=== PATIENT | female | born 1940 | race Caucasian/White ===

== ENCOUNTER → 2016-07-28 | Outpatient (CLI) | payer OTHER ==
[2015-12-28 22:05] VITALS: BP 145/80
[~2016-07-28] MED LIST: ALBU8.5H8 IH; ALPR0.5T6 PO; ESTR0.5T PO; FLUT1DIS3 IH; HCTZ; HYDR25TA9 PO; IBUP400T18 PO; ISOS30TA PO; LEVO88TA2 PO; LOVA40TA2 PO; METO25TA2 PO; MULT-658 PO; OMEG500C3 PO; ONDA4TAB10 SL; OSEL75CA PO; [UNRECOGNIZED DRUG - OTHER]; [UNRECOGNIZED DRUG - OTHER]; advair; centrum; fish oil; ibuprofen; lovastatin; proair
--- NOTE | 2016-07-28 12:44 | RAD ---
Chest, 2 views, 07/28/2016: History: Coronary artery disease Comparison is made to a study from 12/14/2015. A left-sided transvenous pacemaker remains in place with 2 leads extending in the right heart. The heart size and pulmonary vascularity are normal. There is mild tortuosity and calcific plaquing of the thoracic aorta. There is minimal basilar scarring posteriorly. No acute infiltrate is seen. No significant volume of pleural fluid is evident. Mild spurring is present in the spine. IMPRESSION: No acute cardiopulmonary abnormality is detected.
[2016-07-28 13:02] LABS: BASO % 1 % (0-3); EOS # 1.2 x10^3/uL (0.0-0.7); EOS % 15 % (0-3); HEMATOCRIT 41.8 % (36.0-47.0); LYMPH # 2.2 x10^3/uL (1.0-4.8); LYMPH % 29 % (24-48); MEAN CORPUSCULAR HEMOGLOBIN 28 pg (25-35); MEAN CORPUSCULAR HGB CONC 34 g/dL (31-37); MEAN CORPUSCULAR VOLUME 85 fL (79-100); MONO # 1.1 x10^3/uL (0.0-1.1); MONO % 14 % (0-9); NEUT # 3.3 x10^3uL (1.8-7.7); NEUT % 42 % (31-73); PLATELET COUNT 313 x10^3/uL (140-400); RED BLOOD COUNT 4.95 x10^6/uL (3.50-5.40); RED CELL DISTRIBUTION WIDTH 14.2 % (11.5-14.5); WHITE BLOOD COUNT 7.8 x10^3/uL (4.0-11.0)
[2016-07-28 13:15] LABS: ALBUMIN 3.8 g/dL (3.4-5.0); CALCIUM 9.3 mg/dL (8.5-10.1); CREATININE 0.9 mg/dL (0.6-1.0); GFR 61.2; POTASSIUM 3.4 mmol/L (3.5-5.1); TOTAL BILIRUBIN 0.9 mg/dL (0.2-1.0); TOTAL PROTEIN 7.8 g/dL (6.4-8.2)
[2016-07-29 12:11] LABS: THYROID STIM HORMONE (TSH) 4.977 uIU/mL (0.358-3.740)
== END | disposition home or self-care (01) ==
LOC: LAB 11:59
PROVIDERS: ATTEND Internal Medicine Cardiovascular Disease
DX: I25.110 Atherosclerotic heart disease of native coronary artery with unstable angina pectoris (principal); E78.00 Pure hypercholesterolemia, unspecified; Z95.0 Presence of cardiac pacemaker
CPT/HCPCS: 36415; 71020; 80053; 80061; 84443; 85027

== ENCOUNTER → 2016-08-26 | Outpatient (CLI) | payer OTHER ==
[2015-12-28 22:05] VITALS: BP 145/80
--- NOTE | 2016-08-26 13:00 | RAD ---
Left wrist, 4 views, 08/26/2016: History: Pain and swelling No fracture or dislocation is identified. There is a small well-defined lucency in the distal aspect of the navicular bone compatible with a degenerative type cyst. There is minimal spurring at the first CMC joint. IMPRESSION: 1. Mild degenerative change. 2. No acute bony abnormality is detected. Left forearm, 08/26/2016: History: Arm pain and swelling No fracture or destructive bony lesion is seen. Mild subcutaneous edema is noted. IMPRESSION: No acute bony abnormality is detected.
== END | disposition home or self-care (01) ==
LOC: DXRADRC 12:21
PROVIDERS: ATTEND Nurse Practitioner Family
DX: M19.042 Primary osteoarthritis, left hand (principal); M79.89 Other specified soft tissue disorders
CPT/HCPCS: 73090; 73110

== ENCOUNTER 2016-08-27 12:10 | Emergency (ER) | payer MEDICARE, OTHER ==
[~2016-08-27] VITALS: Ht 154.9 cm; Wt 78.0 kg
[2016-08-27 12:10] VITALS: BP 158/87
--- NOTE | 2016-08-27 12:14 | ED.ADGEN ---
Past History Past Medical History: A-Fib, Asthma, CAD, Cancer, COPD, High Cholesterol, Hypertension, Hypothyroid, SC, Other Past Surgical History: Cholecystectomy, Hysterectomy, Other Smoking: Less than 1pk/day, Quit Less Than 1 Year Alcohol Use: Rarely Drug Use: None Adult General Chief Complaint Chief Complaint Left arm pain [facility] Patient is a 76 year old she and female who presents with arm pain. She states it hurts about the last 5 days. She was seen by her primary care physician and had x-rays of her hand and forearm completed and was told there is no fracture. She presents today with swelling of her arm stating that the primary care doctor was concerned there might be a blood clot in her arm and wants ultrasound. She states she's not been using anything for pain, she denies fevers chills and shortness of breath. She states it does not hurt in her wrist but it does hurt over her thumb and it hurts when she tries to brass pickler heavy objects. She also complains of a rash that she's seeing the on air talent about this states that she doesn't trust the on air talent and she was given a cream that felt like fire when she applied. She shows me the cream and it is triamcinolone cream. She also has a topical steroid that she is using. States the rash is itchy and she scratches it from time to time. Review of Systems Review of Systems Constitutional: Denies fever or chills [] Eyes: Denies change in visual acuity, redness, or eye pain [] HENT: Denies nasal congestion or sore throat [] Respiratory: Denies cough or shortness of breath [] Cardiovascular: No additional information not addressed in HPI [] GI: Denies abdominal pain, nausea, vomiting, bloody stools or diarrhea [] : Denies dysuria or hematuria [] Musculoskeletal: Denies back pain or joint pain [] Integument: Denies rash or skin lesions [] Neurologic: Denies headache, focal weakness or sensory changes [] Endocrine: Denies polyuria or polydipsia [] Allergies Allergies Allergies Coded Allergies Type Severity Reaction Last Updated Verified codeine Allergy Intermediate Nausea 10/18/13 Yes hydrocodone Allergy Intermediate 10/18/13 Yes Physical Exam Physical Exam Constitutional: Well developed, well nourished, no acute distress, non-toxic appearance. [] HENT: Normocephalic, atraumatic, bilateral external ears normal, oropharynx moist, no oral exudates, nose normal. [] Eyes: PERRLA, EOMI, conjunctiva normal, no discharge. [] Neck: Normal range of motion, no tenderness, supple, no stridor. [] Cardiovascular:Heart rate regular rhythm, no murmur [] Lungs & Thorax: Bilateral breath sounds clear to auscultation [] Abdomen: Bowel sounds normal, soft, no tenderness, no masses, no pulsatile masses. [] Skin: Warm, dry, no erythema, sandpaper type rash on the right thigh in addition to right upper chest, no erythema. Back: No tenderness, no CVA tenderness. [] Extremities: Swelling over the dorsum of the distal forearm of the left side, sensation and motor intact to radial median and ulnar distributions, no cyanosis , no clubbing, ROM intact, radial pulse 2+ Neurologic: Alert and oriented X 3, normal motor function, normal sensory function, no focal deficits noted. [] Psychologic: Affect normal, judgement normal, mood normal. [] Current Patient Data Vital Signs Vital Signs Date Time Temp Pulse Resp B/P (MAP) Pulse Ox O2 Delivery O2 Flow Rate FiO2 08/27/16 12:10 98.5 82 22 98 Room Air EKG EKG [] Radiology/Procedures Radiology/Procedures I reviewed the x-rays from 08/26/2016; 4 views of the left wrist and 2 views of the left forearm do not appreciate any fractures, foreign bodies, or malalignments, as interpreted by me. [place] [id number] IMAGING REPORT Signed PATIENT: SHAYY NOBLE ACCOUNT: [id number] : 1940 LOCATION: ER AGE: 76 SEX: F EXAM STATUS: REG ER ORD. PHYSICIAN: REECE CORONADO MD REASON: pain PROCEDURE: VENOUS UPPER EXTREMITY LEFT Left upper extremity venous Doppler. History: Pain left wrist with swelling Ultrasound was used to evaluate the veins of the left upper extremity. The patient was uncooperative, the study is limited. The jugular vein is compressible and has flow with color imaging. There is flow with color imaging in the subclavian vein. Axillary vein is compressible. Patient would not allow augmentation views to be obtained. Technologist stated there was compression of the brachial vein which is not optimally seen on the images. Impression: 1. Left upper extremity venous Doppler was a very limited study. 2. No obvious deep venous thrombosis. DICTATED AND SIGNED BY: HECTOR MARTIN MD DATE: 08/27/16 [id number] CC: REECE CORONADO MD; ALYSSA GALEANO ~ Course & Med Decision Making Course & Med Decision Making Pertinent Labs and Imaging studies reviewed. (See chart for details) X-rays performed yesterday in addition to ultrasound today is negative. She has good cap refill and pulses. This could be arthritis or other inflammatory process. We'll discharge with a wrist splint and [place]. She is instructed not to drive or drink alcohol while taking [place] as it can impair judgment and make you sleepy. Return precautions given. She is to follow-up with her primary care physician on Monday, return ER if her pains not improved, worse she develops fevers or other concerns. Final Impression Final Impression Left arm pain Problems: Dragon Disclaimer Dragon Disclaimer This electronic medical record was generated, in whole or in part, using a voice recognition dictation system. REECE CORONADO MD Aug 27, 2016 12:14
--- NOTE | 2016-08-27 13:49 | RAD ---
Left upper extremity venous Doppler. History: Pain left wrist with swelling Ultrasound was used to evaluate the veins of the left upper extremity. The patient was uncooperative, the study is limited. The jugular vein is compressible and has flow with color imaging. There is flow with color imaging in the subclavian vein. Axillary vein is compressible. Patient would not allow augmentation views to be obtained. Technologist stated there was compression of the brachial vein which is not optimally seen on the images. Impression: 1. Left upper extremity venous Doppler was a very limited study. 2. No obvious deep venous thrombosis.
== END 2016-08-27 14:26 | disposition home or self-care (01) ==
LOC: ER 12:10
DX: M79.602 Pain in left arm (principal); R21 Rash and other nonspecific skin eruption; I48.91 Unspecified atrial fibrillation; I25.10 Atherosclerotic heart disease of native coronary artery without angina pectoris; J44.9 Chronic obstructive pulmonary disease, unspecified; E78.00 Pure hypercholesterolemia, unspecified; E03.9 Hypothyroidism, unspecified; I10 Essential (primary) hypertension; Z87.891 Personal history of nicotine dependence; Z88.5 Allergy status to narcotic agent
CPT/HCPCS: 29125; 93971; 99284-25

== ENCOUNTER → 2016-09-27 | Outpatient (CLI) | payer MEDICARE, OTHER ==
[2016-09-27 12:10] LABS: CALCIUM 9.3 mg/dL (8.5-10.1); CREATININE 0.8 mg/dL (0.6-1.0); GFR 69.9; POTASSIUM 3.9 mmol/L (3.5-5.1)
== END | disposition home or self-care (01) ==
LOC: LAB 11:30
PROVIDERS: ATTEND Internal Medicine Cardiovascular Disease
DX: E87.6 Hypokalemia (principal)
CPT/HCPCS: 36415; 80048

== ENCOUNTER → 2016-11-09 | Outpatient (CLI) | payer OTHER ==
--- NOTE | 2016-11-09 16:53 | RAD ---
EXAM: Right lower extremity Doppler sonogram. HISTORY: Swelling. TECHNIQUE: Grayscale and color Doppler sonographic imaging of the lower extremity veins with spectral waveform analysis was performed. COMPARISON: None. FINDINGS: There is normal color flow, normal compressibility and there are normal spectral waveforms within the lower extremity veins. There are prominent lymph nodes within the right inguinal region. The largest of these measures 3.0 cm maximum dimension and maintains a benign fatty hilum. IMPRESSION: 1. No Doppler evidence of lower extremity venous thrombosis. 2. Prominent right inguinal lymph nodes, likely physiologic or reactive.
== END | disposition home or self-care (01) ==
LOC: US 15:01
PROVIDERS: ATTEND Physician Assistant Medical
DX: M79.604 Pain in right leg (principal); M79.89 Other specified soft tissue disorders
CPT/HCPCS: 93971

== ENCOUNTER → 2016-11-14 | Outpatient (CLI) | payer OTHER ==
[2016-11-14 10:12] LABS: CALCIUM 9.8 mg/dL (8.5-10.1); CREATININE 0.8 mg/dL (0.6-1.0); GFR 69.9; POTASSIUM 3.5 mmol/L (3.5-5.1)
== END | disposition home or self-care (01) ==
LOC: LAB 09:12
PROVIDERS: ATTEND Nurse Practitioner
DX: R60.0 Localized edema (principal)
CPT/HCPCS: 36415; 80048

== ENCOUNTER → 2016-11-17 | Outpatient (CLI) | payer OTHER ==
--- NOTE | 2016-11-17 16:13 | RAD ---
CT abdomen/pelvis Indication: Inguinal adenopathy Technique: CT abdomen/pelvis without IV contrast Comparison: Venous Doppler from 11/09/2016. Findings: Limited study due to lack of IV contrast. Heart is normal in size. Cardiac pacemaker leads are seen in the ventricle. 0.9 cm left pericardiophrenic lymph node noted. Subsegmental atelectasis or scarring in the lung bases. Noncontrast appearance of the liver, spleen, pancreas, adrenals is within normal limits. No hydronephrosis. Gallbladder not visualized but is surgically absent. Enlarged right external iliac chain lymph node noted measuring 1.5 x 2.5 cm (series 2 image 96). 1.5 x 1.5 cm right inguinal lymph node noted (series 2 image 109)). Partially visualized is another enlarged right inguinal lymph node measuring 1.8 x 1.1 cm (series 2 image 121). Left pelvic sidewall lymph node measuring 1.6 x 1.0 cm (series 2 image 91). Left inguinal lymph node measures 1.3 x 0.9 cm (series 2 image 107). Left para-aortic lymph node measuring 1.1 x 1.5 cm (series 2 image 48). Moderate sigmoid and distal descending colon diverticulosis. No bowel obstruction. Severe multilevel degenerative disc disease in the spine. Moderate to severe facet arthropathy. No suspicious bony lesions. Bladder is nondistended however show no focal lesion. No solid adnexal lesion. Impression: Limited study due to lack of IV contrast. 1. Pelvic and inguinal lymphadenopathy with scattered mildly enlarged retroperitoneal lymph nodes. These are nonspecific and may be reactive or secondary to lymphoproliferative disease. Correlate with lab values. 2. Sigmoid and descending colon diverticulosis without diverticulitis. PQRS Compliance Statement: One or more of the following individualized dose reduction techniques were utilized for this examination: 1. Automated exposure control 2. Adjustment of the mA and/or kV according to patient size 3. Use of iterative reconstruction technique
== END | disposition home or self-care (01) ==
LOC: CT 12:50
PROVIDERS: ATTEND Physician Assistant
DX: R59.0 Localized enlarged lymph nodes (principal); K57.30 Diverticulosis of large intestine without perforation or abscess without bleeding; M12.88 Other specific arthropathies, not elsewhere classified, other specified site; Z95.0 Presence of cardiac pacemaker; Z90.49 Acquired absence of other specified parts of digestive tract
CPT/HCPCS: 74176

== ENCOUNTER → 2017-02-10 | Outpatient (CLI) | payer OTHER ==
--- NOTE | 2017-02-10 14:23 | RAD ---
DATE: 02/10/2017 EXAM: MAMMO VANCE SCREENING BILATERAL HISTORY: Routine screening COMPARISON: 07/10/2015, 07/23/2015 This study was interpreted with the benefit of Computerized Aided Detection (CAD). The breast parenchyma is heterogeneously dense, which could reduce sensitivity of mammography. Breast parenchyma level C. FINDINGS: 2-D and 3-D tomosynthesis imaging was performed in CC and MLO projections. The fibroglandular pattern is heterogeneous and multinodular in character. Some of these nodules are better defined on the current tomographic images, however, comparison of the current and old 2-D images show no definite change. Scattered benign type calcifications are present. No suspicious microcalcifications have developed. Small left axillary lymph nodes are better visualized on the current study due differences in patient positioning. IMPRESSION: There is no mammographic evidence of malignancy in either breast. BI-RADS CATEGORY: 2 BENIGN FINDING(S) RECOMMENDED FOLLOW-UP: 12M 12 MONTH FOLLOW-UP PQRS compliance statement: Patient information was entered into a reminder system with a target due date for the next mammogram. Mammography is a sensitive method for finding small breast cancers, but it does not detect them all and is not a substitute for careful clinical examination. A negative mammogram does not negate a clinically suspicious finding and should not result in delay in biopsying a clinically suspicious abnormality. "Our facility is accredited by the [employer] Mammography Program."
== END | disposition home or self-care (01) ==
LOC: MAMMO 11:39
PROVIDERS: ATTEND Family Medicine
DX: Z12.31 Encounter for screening mammogram for malignant neoplasm of breast (principal); R92.1 Mammographic calcification found on diagnostic imaging of breast; F17.200 Nicotine dependence, unspecified, uncomplicated; Z85.9 Personal history of malignant neoplasm, unspecified
CPT/HCPCS: 77063; G0202; 77067

== ENCOUNTER → 2018-04-27 | Outpatient (CLI) | payer OTHER ==
[~2018-04-27] MED LIST changes: +ALBU2.5V8 IH; -ALBU8.5H8 IH; +HYDR-2145 PO; -HYDR25TA9 PO; +IOHEXOL 240 MG/ML 50ML VIAL. ONE; +IOHEXOL 300 MG/ML 75 ML VIAL. IV ONE
--- NOTE | 2018-04-27 11:40 | RAD ---
CT of the abdomen and pelvis with contrast, 04/27/2018: HISTORY: Right lower quadrant pain, back pain, diarrhea Multidetector CT imaging was performed following oral and IV administration of contrast. Comparison is made to a study from 11/17/2016. There is bibasilar linear scarring. A persistent density in the inferior lingula on the left is also probably a scar or minimal chronic atelectasis. Transvenous pacing leads extend into the heart. The gallbladder is surgically absent. No hepatic mass is identified. The pancreatic head cannot be clearly from the unopacified duodenum. No pancreatic mass is seen. The spleen is of normal size. No renal abnormality is detected. There is moderate aortoiliac calcific plaquing without evidence of aneurysm. The uterus is surgically absent. Mildly enlarged pelvic and lower abdominal lymph nodes were evident on the previous study. These have generally regressed. The largest of these nodes was in the right external iliac region adjacent to the iliac vein as best seen on axial image 60 of series #2 of today's study. This node currently measures 19 x 13 mm compared to measurements of 23 x 15 mm on the previous study. There is a node along the left pelvic sidewall which currently measures 8 mm in width compared to 10 mm on the previous study. A cluster of 2 mildly enlarged lymph nodes seen along the left side of the distal aorta at the aortic bifurcation on the previous study now measuring 8-9 mm in short axis dimension. The stability to slight regression of these lymph nodes favors a benign etiology. Colonic diverticula are present, most extensive in the sigmoid region. No paracolonic inflammatory process is seen. The appendix is not visualized. No dilated appendix or pericecal inflammatory process is seen. No free fluid or free air is evident in the abdomen or pelvis. There are moderate scattered degenerative changes in the spine. IMPRESSION: 1. Mild lower abdominal and pelvic adenopathy has regressed since 2017 suggesting a benign etiology. 2. Extensive sigmoid diverticulosis. 3. No acute abdominal or pelvic abnormality is detected. PQRS Compliance Statement: One or more of the following individualized dose reduction techniques were utilized for this examination: 1. Automated exposure control 2. Adjustment of the mA and/or kV according to patient size 3. Use of iterative reconstruction technique Electronically signed by: Jose Elias Chu MD (04/27/2018 11:38 AM) [facility]
== END | disposition home or self-care (01) ==
LOC: CT 08:06
PROVIDERS: ATTEND Family Medicine
DX: K57.30 Diverticulosis of large intestine without perforation or abscess without bleeding (principal); R59.0 Localized enlarged lymph nodes; M47.899 Other spondylosis, site unspecified; R91.8 Other nonspecific abnormal finding of lung field
CPT/HCPCS: 74177; Q9967

== ENCOUNTER → 2018-10-03 | Outpatient (CLI) | payer OTHER ==
[~2018-10-03] MED LIST changes: -IOHEXOL 240 MG/ML 50ML VIAL. ONE; -IOHEXOL 300 MG/ML 75 ML VIAL. IV ONE
--- NOTE | 2018-10-03 11:49 | RAD ---
EXAM: Left shoulder, 3 views. HISTORY: Pain. COMPARISON: None. FINDINGS: 3 views of the left shoulder obtained. There is no fracture, dislocation or subluxation. There is minimal marginal femoral head spurring. There is a cardiac pacemaker partially included on the [id number]-hi-erae. There is degenerative facet arthropathy involving the visualized cervical spine. IMPRESSION: 1. No acute osseous finding. 2. Minimal glenohumeral osteoarthritis. Electronically signed by: Kristine Khan MD (10/03/2018 11:46 AM) [facility]
--- NOTE | 2018-10-03 11:50 | RAD ---
CERVICAL SPINE 2-3V History: Left neck pain Comparison: None. Findings: 4 views cervical spine are submitted. There is interbody fusion C4-5, advanced degenerative disc disease C5-6 and C6-7, to lesser degree C7-T1 and C3-4. There is multilevel spondylosis and facet degenerative change. There is mild levoscoliosis. There is adequate alignment of the lateral masses C1 relative to C2. Occipital condylar-C1 articulation is mostly obscured by overlying bone and teeth, not obviously widened on the right. There is degenerative change associated with the left lateral mass articulation C1-C2. There is atherosclerotic calcification of the left carotid artery in the neck. Cervical vertebral body stature is overall maintained. There is negligible anterior spondylolisthesis C7-T1. Impression: 1. There is multilevel advanced cervical degenerative disc disease, multilevel spondylosis. There is interbody fusion C4-5. There is multilevel cervical facet degenerative change. 2. There is atherosclerotic calcification of the left carotid artery in the neck. Electronically signed by: Kodak Everett MD (10/03/2018 11:47 AM) [facility]
== END | disposition home or self-care (01) ==
LOC: PMG 10:53
PROVIDERS: ATTEND Registered Nurse
DX: M47.812 Spondylosis without myelopathy or radiculopathy, cervical region (principal); M50.321 Other cervical disc degeneration at C4-C5 level; M51.34 Other intervertebral disc degeneration, thoracic region; M19.012 Primary osteoarthritis, left shoulder; M46.82 Other specified inflammatory spondylopathies, cervical region; M43.22 Fusion of spine, cervical region; I65.22 Occlusion and stenosis of left carotid artery; Z95.0 Presence of cardiac pacemaker
CPT/HCPCS: 72040; 73030

== ENCOUNTER → 2018-10-31 | Outpatient (CLI) | payer OTHER ==
--- NOTE | 2018-10-31 16:57 | RAD ---
Bone Densitometry History: Post menopausal, screening. Findings: Bone Densitometry was performed with dual photon absorption of the lumbar spine and proximal right femur. Lumbar Spine: Bone density is 1.389 g/cm2 for L1-L4. T-score is 1.7. Z-score is 3.0. Right femoral neck: Bone density is 0.871 g/cm2. T-score is -1.2. Z-score is 0.5. IMPRESSION: 1. Normal bone mineral density of the lumbar spine. 2. Mild osteopenia of the right femoral neck. World Health Organization definition of osteoporosis and osteopenia for women: normal equals T score at or above -1.0 standard deviations; osteopenia equals T score between -1.0 and -2.5 standard deviations; osteoporosis equals T score at or below -2.5 standard deviations. Electronically signed by: Elgin Combs MD (10/31/2018 4:54 PM) [id number]
== END | disposition home or self-care (01) ==
LOC: DXRAD 10:57
PROVIDERS: ATTEND Registered Nurse
DX: M85.88 Other specified disorders of bone density and structure, other site (principal); Z78.0 Asymptomatic menopausal state
CPT/HCPCS: 77080

== ENCOUNTER → 2018-10-31 | Outpatient (CLI) | payer OTHER ==
--- NOTE | 2018-10-31 16:39 | RAD ---
EXAM: PA and Lateral Views of the Chest DATE: 10/31/2018 12:00 AM INDICATION: Dyspnea COMPARISON: 07/28/2016 FINDINGS: Heart is not enlarged. Cardiac generator pack obscures a portion left chest with leads in stable position. Linear opacity left lung base likely scarring/atelectasis. No lobar consolidation. No pleural effusion or pneumothorax. IMPRESSION: 1. No evidence for acute cardiopulmonary process. 2. Linear opacities left lung base likely scarring/atelectasis. Electronically signed by: Cj Chaparro MD (10/31/2018 4:36 PM) [facility]
== END | disposition home or self-care (01) ==
LOC: DXRAD 11:06
PROVIDERS: ATTEND Internal Medicine Cardiovascular Disease
DX: J98.4 Other disorders of lung (principal)
CPT/HCPCS: 71046

== ENCOUNTER 2018-12-23 09:30 | Emergency (ER) | payer OTHER ==
[~2018-12-23] VITALS: Ht 154.9 cm; Wt 77.1 kg
[2018-12-23 09:32] VITALS: BP 129/79
[2018-12-23] MEDS ORDERED: ONDANSETRON ODT 4 MG TAB.RAPDIS PO ONE (10:15)
[2018-12-23] MEDS ORDERED: HYDROcodone/APAP 5/325MG 1 TAB TABLET PO ONE (10:30)
--- NOTE | 2018-12-23 10:40 | PHYS DOC ---
Past History Past Medical History: A-Fib, Asthma, CAD, Cancer, COPD, High Cholesterol, Hypertension, Hypothyroid, [place], Other Past Surgical History: Cholecystectomy, Hysterectomy, Other Smoking: Less than 1pk/day, Quit Less Than 1 Year Alcohol Use: None Drug Use: None Adult General Chief Complaint Chief Complaint: HIP PAIN HPI HPI Patient is a 78-year-old female presenting with hip pain onset Monday. She has had arthritis pain in her hip and her back for a long time as well as multiple other locations including her hands and her knee as well but the pain seems worse over the last few days. It is hard for her to walk she still is able to do so. It is described as a sharp severe and also dull and burning pain starts kind of in lower back area and goes to the right hip. She is here because she wants get an x-ray to make sure she doesn't have a "hairline fracture". Patient has had several years now of some right flank pain on and off burning sensation she had a last night again she said she has had CAT scans that have been unrevealing and she currently does not have that pain now. Review of Systems Review of Systems Constitutional: Denies fever or chills [] Eyes: Denies change in visual acuity, redness, or eye pain [] HENT: Denies nasal congestion or sore throat [] Respiratory: Denies cough or shortness of breath [] Cardiovascular: No additional information not addressed in HPI [] : Denies dysuria or hematuria [] All other systems were reviewed and found to be within normal limits, except as documented in this note. Current Medications Current Medications Current Medications Medications (Trade) Dose Ordered Sig/Jero Start Time Stop Time Status Last Admin Dose Admin Acetaminophen/ Hydrocodone Bitart (Lortab 5/325) 2 tab 1X ONCE 12/23/18 10:30 12/23/18 10:31 DC Ondansetron HCl (Zofran Odt) 4 mg 1X ONCE 12/23/18 10:15 12/23/18 10:16 DC Allergies Allergies Allergies Coded Allergies Type Severity Reaction Last Updated Verified codeine Allergy Intermediate Nausea 10/18/13 Yes hydrocodone Allergy Intermediate 10/18/13 Yes Physical Exam Physical Exam Constitutional: Well developed, well nourished, no acute distress, non-toxic appearance. [] HENT: Normocephalic, atraumatic, bilateral external ears normal, oropharynx moist, no oral exudates, nose normal. [] Eyes: PERRLA, EOMI, conjunctiva normal, no discharge. [] Neck: Normal range of motion, no tenderness, supple, no stridor. [] Abdomen: Bowel sounds normal, soft, no tenderness, no masses, no pulsatile masses. [] Skin: Warm, dry, no erythema, no rash. [] Back:mild right paraspinous ttp Extremities: rom right hip intact but slightly limited due to pain, mild ttp of the r knee no trauma seen Neurologic: Alert and oriented X 3, normal motor function, normal sensory function, no focal deficits noted. [] Psychologic: Affect normal, judgement normal, mood normal. [] Current Patient Data Vital Signs Vital Signs Date Time Temp Pulse Resp B/P (MAP) Pulse Ox O2 Delivery O2 Flow Rate FiO2 12/23/18 09:32 98.3 75 16 99 Room Air s * Mild Temperature (Fahrenheit): * 98.3 degrees F (97.6-99.5) Patient Temperature * 98.3 degrees F (97.5-99.5) Temperature Source * Oral Blood Pressure Systolic * 129 mm Hg (100-140) Blood Pressure Diastolic * 79 mm Hg (60-100) Blood Pressure Mean * 96 mm Hg Blood Pressure Location * Right Arm Blood Pressure Source * Automatic Cuff Pulse Rate * 75 beats per minute (60-90) Pulse Assessment Method * Monitor Respiratory Rate * 16 breaths per minute (12-24) Oxygen Delivery Method * Room Air Bedside Pulse Oximetry * 99 % Treatment Prior to Arrival * No Complaint of Pain * Yes Pain Scale Type * Numeric EKG EKG [] Radiology/Procedures Radiology/Procedures [] Impressions: Single AP view of the pelvis with two-view thoracic hip are obtained. No evidence of acute fracture. No evidence of aggressive bone destruction. Joint spaces are intact. Mild gas and stool within visualized bowel loops. Degenerative spondylosis of the partially seen lower spine. IMPRESSION: No evidence of acute fracture. If symptoms do not resolve, recommend follow-up with outpatient MRI of the hip. Electronically signed by: Wang Livingston MD (12/23/2018 11:17 AM) [facility] DICTATED AND SIGNED BY: WANG LIVINGSTON MD DATE: 12/23/18 [id number] CC: WARD HANSEN MD; ELIZABETH BARRETT MD ~ Course & Med Decision Making Course & Med Decision Making Pertinent Labs and Imaging studies reviewed. (See chart for details) []78-year-old female with multiple medical problems cardiac history on Lorie Sarha's chronic pain presenting with right hip pain atraumatic distal function sensation pulse are intact suspect arthritis x-ray confirms the above no obvious fracture was identified patient is still able to ambulate recommended pain control follow-up with primary care doctor. Dragon Disclaimer Dragon Disclaimer This electronic medical record was generated, in whole or in part, using a voice recognition dictation system. Departure Departure: Impression: Primary Impression: Right hip pain Disposition: HOME, SELF-CARE Condition: STABLE Referrals: ELIZABETH BARRETT MD (PCP) Scripts Hydrocodone Bit/Acetaminophen (NORCO 5-325 TABLET) 1 Each Tablet 1-2 TAB PO Q4-6HRS PRN for PAIN, #20 TAB Prov: WARD HANSEN MD 12/23/18 Ondansetron (ONDANSETRON ODT) 4 Mg Tab.rapdis 1 TAB PO PRN Q6-8HRS PRN for NAUSEA/VOMITING, #16 TAB Prov: WARD HANSEN MD 12/23/18 WARD HANSEN MD Dec 23, 2018 10:40
--- NOTE | 2018-12-23 11:20 | RAD ---
HIP RIGHT 2V WITH PELVIS History: Atraumatic pain. Rule out fracture.. COMPARISON: None. FINDINGS: Single AP view of the pelvis with two-view thoracic hip are obtained. No evidence of acute fracture. No evidence of aggressive bone destruction. Joint spaces are intact. Mild gas and stool within visualized bowel loops. Degenerative spondylosis of the partially seen lower spine. IMPRESSION: No evidence of acute fracture. If symptoms do not resolve, recommend follow-up with outpatient MRI of the hip. Electronically signed by: Wang Livingston MD (12/23/2018 11:17 AM) [facility]
[2018-12-23] MEDS ORDERED: ONDA4TAB12 PO (11:23)
[2018-12-23] MEDS ORDERED: HYDR-3165 PO (11:23)
[2018-12-23] MEDS ORDERED: PROCHLORPERAZINE 5 MG TABLET. PO STA (11:45)
[2018-12-23] MEDS ORDERED: METOCLOPRAMIDE 10 MG TABLET ONE (11:50)
[2018-12-23] MEDS ORDERED: METOCLOPRAMIDE 10 MG TABLET PO ONE (12:00)
== END 2018-12-23 11:35 | disposition home or self-care (01) ==
LOC: ER 09:30
DX: M25.551 Pain in right hip (principal); R10.9 Unspecified abdominal pain; M25.561 Pain in right knee; G89.29 Other chronic pain; I48.91 Unspecified atrial fibrillation; J44.9 Chronic obstructive pulmonary disease, unspecified; I25.10 Atherosclerotic heart disease of native coronary artery without angina pectoris; E78.00 Pure hypercholesterolemia, unspecified; I10 Essential (primary) hypertension; E03.9 Hypothyroidism, unspecified; Z90.49 Acquired absence of other specified parts of digestive tract; Z90.710 Acquired absence of both cervix and uterus; Z87.891 Personal history of nicotine dependence; Z88.5 Allergy status to narcotic agent
CPT/HCPCS: 73502; 99284; J8597; Q0162

== ENCOUNTER 2020-05-01 17:45 | Emergency (ER) | payer MEDICARE, OTHER ==
[~2020-05-01] VITALS: Ht 154.9 cm; Wt 75.5 kg
[~2020-05-01 17:45] MED LIST changes: +HYDR-3165 PO; +ONDA4TAB12 PO
[2020-05-01 18:09] VITALS: BP 106/60
[2020-05-01] MEDS ORDERED: ONDANSETRON PF 4 MG/2 ML VIAL. IVP ONE (18:15)
[2020-05-01] MEDS ORDERED: KETOROLAC 30 MG/ML VIAL. IVP ONE (18:15)
[2020-05-01] MEDS ORDERED: ORPHENADRINE CITRATE 60 MG/2 ML VIAL. IV ONE (18:15)
--- NOTE | 2020-05-01 18:53 | RAD ---
Exam: CT the lumbar spine without contrast INDICATION: Pain, fall in [employer] parking lot TECHNIQUE: Sequential axial images through the lumbar spine obtained without IV contrast. Sagittal an d coronal reformatted images were reconstructed from the axial data and reviewed. Comparisons: None FINDINGS: Vertebral body heights and alignment are well-maintained. Fracture to the lumbar spine is identified. There is laminectomy changes noted at L4-L5. Multilevel spondylotic changes lumbar spine with degenerative disc disease greatest at L4-L5 and L5-S 1. Visualized paraspinal soft tissues are unremarkable. IMPRESSION: Negative CT lumbar spine for acute traumatic injury. Exposure: One or more of the following in the visualized dose reduction techniques were utilized for this examination: 1. Automated exposure control 2. Adjustment of the MA and/or KV according to patient size 3. Use of iterative of reconstructive technique Electronically signed by: Liv Bella MD (05/01/2020 6:50 PM) RUI
--- NOTE | 2020-05-01 18:59 | PHYS DOC ---
Past History Past Medical History: A-Fib, Asthma, CAD, Cancer, COPD, High Cholesterol, Hypertension, Hypothyroid, LA, Other Past Surgical History: Cholecystectomy, Hysterectomy Smoking: Less than 1pk/day, Quit Less Than 1 Year Alcohol Use: None Drug Use: None General Adult EDM: Chief Complaint: BACK PAIN OR INJURY HPI: HPI: ".. I was bending over to tile picker my bag.. and I got this severe pain in my back... terrible back spasms.. I could not even get up.. some one else drove my car to the ED...." Patient is a 79 year old female who presents with above hx and complaints of back spasm and fall on [employer] lot. Patient states that the back spasms are so severe she is unable to get up at extenders drove her to the emergency department. The patient states initially she had bent over To tile picker a sack. Patient states pain starts in the lumbar area and radiates down her right leg. Patient has had this type of sciatica before. Patient had similar episodes in the past and required neurosurgery approximately 7 8 years ago. Since that time she has had periodic exacerbations of her back pain. Patient denies any recent fever or chills. Patient denies any history of cancer. Patient denies any problems with defecation or urination. No saddle loss reported. Patient is currently ambulatory. Still has some lumbosacral ba ck spasms. No recent travel. No severe ill contacts. No history of IV drug use. No history immunosuppression. Review of Systems: Review of Systems: Constitutional: Denies fever or chills Eyes: Denies change in visual acuity HENT: Denies nasal congestion or sore throat Respiratory: Denies cough or shortness of breath Cardiovascular: Denies chest pain or edema GI: Denies abdominal pain, nausea, vomiting, bloody stools or diarrhea : Denies dysuria Musculoskeletal: Complains of severe back spasm and sciatica into right leg Integument: Denies rash Neurologic: Denies headache, focal weakness or sensory changes Endocrine: Denies polyuria or polydipsia Lymphatic: Denies swollen glands Psychiatric: Denies depression or anxiety Family History: Family History: Noncontributory to presentation Current Medications: Current Meds: Current Medications Medications (Trade) Dose Ordered Sig/Jero Start Time Stop Time Status Last Admin Dose Admin Ketorolac Tromethamine (Toradol 30mg Vial) 30 mg 1X ONCE 05/01/20 18:15 05/01/20 18:16 DC 05/01/20 18:50 30 MG Ondansetron HCl (Zofran) 4 mg 1X ONCE 05/01/20 18:15 05/01/20 18:16 DC 05/01/20 18:48 4 MG Orphenadrine Citrate (Norflex) 60 mg 1X ONCE 05/01/20 18:15 05/01/20 18:16 DC 05/01/20 18:52 60 MG Allergies: Allergies: Allergies Coded Allergies Type Severity Reaction Last Updated Verified codeine Allergy Intermediate Nausea 10/18/13 Yes hydrocodone Allergy Intermediate 10/18/13 Yes Physical Exam: PE: Constitutional: In acute distress, non-toxic appearance. [] HENT: Normocephalic, atraumatic, bilateral external ears normal, oropharynx moist, no oral exudates, nose normal. [] Eyes: PERRLA, EOMI, conjunctiva normal, no discharge. [] Glasses Neck: Normal range of motion, no tenderness, supple, no stridor. [] Cardiovascular:Heart rate regular rhythm, no murmur [] PMI slightly to the left Lungs & Thorax: Bilateral breath sounds equal apex on auscultation [] Abdomen: Bowel sounds normal, soft, no tenderness, no masses, no pulsatile masses. Old surgical scar Skin: Warm, dry, no erythema, no rash. Venous stasis lower legs Back: Lumbar sacral muscle spasms and tenderness, no CVA tenderness. [] Extremities: No tenderness, no cyanosis, no clubbing, ROM intact, lower leg edema . Venous stasis ulcers. Does wear support wraps Neurologic: Alert and oriented X 3, moves all all extremities as directed. Does have distal sensory. No new focal defects. DTRs +2 patella and brachial. [employer] equal. Straight leg lift exacerbates pain and right sciatic nerve into her right hip. Psychological: Very anxious Current Patient Data: Vital Signs: Vital Signs Date Time Temp Pulse Resp B/P (MAP) Pulse Ox O2 Delivery O2 Flow Rate FiO2 05/01/20 18:09 98.6 72 20 106/60 (75) 97 Room Air EKG: EKG: [] Radiology/Procedures: Radiology/Procedures: [][address] [address] IMAGING REPORT Signed PATIENT: SHAYY NOBLE ACCOUNT: [id number] : 1940 LOCATION: ER AGE: 79 SEX: F EXAM STATUS: REG ER ORD. PHYSICIAN: VANESA WALTERS MD REASON: pain, fall in [employer] parking lot PROCEDURE: CT LUMBAR SPINE WO CONTRAST Exam: CT the lumbar spine without contrast INDICATION: Pain, fall in [employer] parking lot TECHNIQUE: Sequential axial images through the lumbar spine obtained without IV contrast. Sagittal and coronal reformatted images were reconstructed from the axial data and reviewed. Comparisons: None FINDINGS: Vertebral body heights and alignment are well-maintained. Fracture to the lumbar spine is identified. There is laminectomy changes noted at L4-L5. Multilevel spondylotic changes lumbar spine with degenerative disc disease greatest at L4-L5 and L5-S1. Visualized paraspinal soft tissues are unremarkable. IMPRESSION: Negative CT lumbar spine for acute traumatic injury. Exposure: One or more of the following in the visualized dose reduction techniques were utilized for this examination: 1. Automated exposure control 2. Adjustment of the MA and/or KV according to patient size 3. Use of iterative of reconstructive technique Electronically signed by: Liv Álvarez MD (05/01/2020 6:50 PM) [facility] DICTATED AND SIGNED BY: LIV ÁLVAREZ MD DATE: 05/01/20 184 CC: VANESA WALTERS MD; ELIZABETH BARRETT MD ~MTH0 0 Heart Score: C/O Chest Pain: N/A Risk Factors: Risk Factors: DM, Current or recent (<one month) smoker, HTN, HLP, family history of CAD, obesity. Risk Scores: Score 0 - 3: 2.5% MACE over next 6 weeks - Discharge Home Score 4 - 6: 20.3% MACE over next 6 weeks - Admit for Clinical Observation Score 7 - 10: 72.7% MACE over next 6 weeks - Early Invasive Strategies Course & Med Decision Making: Course & Med Decision Making Pertinent Labs and Imaging studies reviewed. (See chart for details) Patient is ice pack as directed. Patient may take Flexeril 10 mg up to 3 times a day for muscle spasms. Tylenol and ibuprofen for pain. We will give a trial of Vicoprofen 1 tablet up to 4 times a day with food however patient warned that this was a narcotic and she may have associated nausea and vomiting as she has had with previous use of narcotics. Patient follow-up primary care. Patient follow-up with neurosurgery. Patient return if any concerns. Impression: 1. Back spasm 2. Sciatica 3. Degenerative joint changes and spurs lumbar sacral spine (no acute fracture on current CT.) [] Dragon Disclaimer: Dragon Disclaimer: This electronic medical record was generated, in whole or in part, using a voice recognition dictation system. Departure Departure: Referrals: ELIZAEBTH BARRETT MD (PCP) Scripts Ondansetron Hcl (ZOFRAN) 4 Mg Tablet 8 MG PO QIDPRN PRN for active vomiting, #30 TAB Prov: VANESA WALTERS MD 05/01/20 Hydrocodone/Ibuprofen (HYDROCODONE-IBUPROFEN 7.5-200 ) 1 Each Tablet 1 TAB PO PRN Q6HRS PRN for PAIN, #30 TAB 0 Refills Prov: VANESA WALTERS MD 05/01/20 Cyclobenzaprine Hcl (CYCLOBENZAPRINE HCL) 5 Mg Tablet 5 MG PO TID PRN for muscle spasm, #30 TAB Prov: VANESA WALTERS MD 05/01/20 Dragon Disclaimer This chart was dictated in whole or in part using Voice Recognition software in a busy, high-work load, and often noisy Emergency Department environment. It may contain unintended and wholly unrecognized errors or omissions. VANESA WALTERS MD May 01, 2020 18:59
[2020-05-01] MEDS ORDERED: LORazepam 1 MG TABLET PO ONE (19:00)
[2020-05-01] MEDS ORDERED: CYCL5TAB PO (19:09)
[2020-05-01] MEDS ORDERED: HYDR-1179 PO (19:09)
[2020-05-01] MEDS ORDERED: ONDA4TAB7 PO (19:09)
== END 2020-05-01 19:55 | disposition home or self-care (01) ==
LOC: ER 17:45
DX: M62.830 Muscle spasm of back (principal); M54.41 Lumbago with sciatica, right side; M47.897 Other spondylosis, lumbosacral region; I48.91 Unspecified atrial fibrillation; J44.9 Chronic obstructive pulmonary disease, unspecified; I25.10 Atherosclerotic heart disease of native coronary artery without angina pectoris; E78.00 Pure hypercholesterolemia, unspecified; I10 Essential (primary) hypertension; E03.9 Hypothyroidism, unspecified; I25.2 Old myocardial infarction; Z87.891 Personal history of nicotine dependence; Z90.49 Acquired absence of other specified parts of digestive tract; Z90.710 Acquired absence of both cervix and uterus; Z88.5 Allergy status to narcotic agent
CPT/HCPCS: 72131; 96374; 96375; 99284; J1885; J2360; J2405

== ENCOUNTER → 2020-08-26 | Day surgery (SDC) | payer MEDICARE ==
[~2020-08-26] MED LIST changes: +APIX5TAB3 PO; +CYCL5TAB PO; +DILT300C23 PO; +HYDR-1179 PO; +OMEP40CA7 PO; +ONDA4TAB7 PO; +POTA20PA30 PO
[2020-08-26 11:27] VITALS: BP 138/78
== END | disposition home or self-care (01) ==
LOC: SURG 11:10
PROVIDERS: ATTEND Anesthesiology
DX: M54.9 Dorsalgia, unspecified (principal); E66.9 Obesity, unspecified; I10 Essential (primary) hypertension; E78.00 Pure hypercholesterolemia, unspecified; I25.10 Atherosclerotic heart disease of native coronary artery without angina pectoris; I48.91 Unspecified atrial fibrillation; J44.9 Chronic obstructive pulmonary disease, unspecified; I25.2 Old myocardial infarction; M47.816 Spondylosis without myelopathy or radiculopathy, lumbar region; M48.061 Spinal stenosis, lumbar region without neurogenic claudication; E11.9 Type 2 diabetes mellitus without complications; E03.9 Hypothyroidism, unspecified; Z95.0 Presence of cardiac pacemaker; Z98.890 Other specified postprocedural states; Z88.5 Allergy status to narcotic agent; Z88.8 Allergy status to other drugs, medicaments and biological substances
CPT/HCPCS: 99204; G0463

== ENCOUNTER → 2021-05-05 | Outpatient (CLI) | payer MEDICARE ==
[2021-04-12 11:20] VITALS: BP 129/76
[~2021-05-05] MED LIST changes: +BENZ100C PO; +DIPH25TA64 PO; +FURO-68 PO; +FURO40TA4 PO; +HYDR10SY16 PO; +IOHEXOL 300 MG/ML 75 ML VIAL. IV ONE; +IOHEXOL 300 MG/ML 75 ML VIAL. ONE; +POTA-121 PO; +ROFL500T7 PO; +[UNRECOGNIZED DRUG - CODE] SQ
--- NOTE | 2021-05-05 15:47 | RAD ---
PQRS Compliance Statement: One or more of the following individualized dose reduction techniques were utilized for this examinat ion: 1. Automated exposure control 2. Adjustment of the mA and/or kV according to patient size 3. Use of iterative reconstruction technique CT CERVICAL SPINE WITHOUT AND WITH IV CONTRAST, CT LUMBAR SPINE 05/05/2021 10:15 AM Indication: Radiculopathy, lumbar fracture. Cervical radiculopathy COMPARISON: CT cervical spine 04/09/2021, CT lumbar spine 05/01/2020. TECHNIQUE: Multiple axial CT images of the cervical spine were obtained without and with intravenous contrast. Multiple axial CT images of the lumbar spine are obtained without contrast. Coronal and sag ittal reformats are provided. FINDINGS: Cervical spine: There is 2 mm anterolisthesis of C3 on C4. There is osseous fusion of C4-C5. There is 1.5 mm retrolis thesis of C5 on C6. There is 3 mm anterolisthesis of C7 on T1. Findings are stable. There is widening of the left atlantoaxial interval with subcortical cystic change. No periosteal reaction or new bone formation to suggest active infection or inflammation. No significant enhancement identified. No par aspinal soft tissue abnormality is identified. Visualized lung apices are clear. No pathologically en larged cervical lymph nodes. There is no acute fracture. Posterior elements are intact. Pacer wires a re partially profiled. Atherosclerotic calcination of the carotid bifurcations. CT C3: Disc is normal in configuration. Moderate right and mild left facet arthropathy. Mild right ne uroforaminal stenosis. No spinal canal stenosis. C3-C4: There is a posterior disc osteophyte complex. Severe right and moderate left facet arthropathy . Moderate right and mild left uncovertebral joint disease. Moderate right and mild to moderate left neuroforaminal stenosis. No significant spinal canal stenosis. C4-C5: This level is fused. Mild osseous neural canal stenosis secondary to posterior osteophytosis. Moderate right and mild left facet arthropathy. Moderate bilateral neuroforaminal stenosis. C5-C6: There is a posterior disc osteophyte complex. Severe right and moderate left facet arthropathy . Moderate to advanced uncovertebral joint disease. Severe right and moderate left neuroforaminal anel nosis. Mild osseous spinal canal stenosis. C6-C7: Mild disc bulge. Moderate facet arthropathy. Severe left and moderate uncovertebral joint dise ase. Moderate left and moderate neuroforaminal stenosis. No significant osseous spinal canal stenosis . C7-T1: There is uncovering of the disc secondary to anterolisthesis. Moderate facet arthropathy. Mild to moderate left and moderate neural foraminal stenosis. No significant spinal canal stenosis. Lumbar spine: There is S-shaped scoliosis of the thoracolumbar spine with apex dextrocurvature at L1-L2 and apex le vocurvature at L4-L5. Left lateral listhesis of L4 on L5. Right lateral listhesis of L3 on L4. There is moderate to advanced disc height loss at L1-L2 with subcortical sclerosis, marginal osteophytosis and vacuum disc phenomena. Mild disc height loss at T12-L1 with vacuum disc phenomenon subcortical sc lerosis. Moderate disc height loss at L2-L3: Mild disc height loss at L3-L4, moderate disc height los s at L4-L5 and advanced disc height loss at L5-S1 with vacuum disc phenomena. No acute fracture. Vert ebral body heights are maintained. Moderate anterior marginal osteophytosis. There is no prevertebral edema. No paraspinal soft tissue abnormality. Abdominal aorta is normal in caliber with dense calcif ied atheromatous plaque. There is a retrocardiac left renal vein. Visualized portions of the sacrum a ppear intact. L1-L2: Disc is normal in configuration. Mild facet arthropathy, left greater than right. Mild left ne ural foraminal stenosis. No significant spinal canal stenosis. L2-L3: There is a posterior disc osteophyte complex. Mild to moderate facet arthropathy. Moderate sev ere left and moderate right neuroforaminal stenosis. Mild spinal canal stenosis. L3-L4: There is a posterior disc osteophyte complex. Moderate to severe facet arthropathy. Severe brett ateral neuroforaminal stenosis. Moderate spinal canal stenosis. L4-L5: There is a circumferential disc bulge with central disc protrusion. Moderate to severe facet a rthropathy. Severe bilateral neuroforaminal stenosis. No residual spinal canal stenosis status post l aminectomy. L5-S1: There is a posterior disc osteophyte complex. Moderate to severe facet arthropathy. Severe lef t and moderate right neuroforaminal stenosis. No significant spinal canal stenosis. IMPRESSION: 1. Moderate to advanced cervical and lumbar spondylosis as described in detail above. No acute fractu re is identified. 2. There is widening of the left atlantoaxial interval with subcortical cystic change and sclerosis a s may be seen with sequela of prior infection/inflammation. No significant enhancement is identified on the current examination. Electronically signed by: Marry Patten MD (05/05/2021 3:44 PM) [id number]
== END ==
LOC: CT 09:27
PROVIDERS: ATTEND Neurological Surgery
DX: S32.009A Unspecified fracture of unspecified lumbar vertebra, initial encounter for closed fracture (principal); I65.23 Occlusion and stenosis of bilateral carotid arteries; M47.22 Other spondylosis with radiculopathy, cervical region; M47.816 Spondylosis without myelopathy or radiculopathy, lumbar region; M41.85 Other forms of scoliosis, thoracolumbar region; M25.78 Osteophyte, vertebrae; M48.07 Spinal stenosis, lumbosacral region; M48.8X7 Other specified spondylopathies, lumbosacral region; M51.25 Other intervertebral disc displacement, thoracolumbar region; M43.16 Spondylolisthesis, lumbar region; M43.8X6 Other specified deforming dorsopathies, lumbar region; I70.0 Atherosclerosis of aorta; M48.03 Spinal stenosis, cervicothoracic region; M48.8X3 Other specified spondylopathies, cervicothoracic region; M50.323 Other cervical disc degeneration at C6-C7 level; M43.12 Spondylolisthesis, cervical region; X58.XXXA Exposure to other specified factors, initial encounter; Y93.89 Activity, other specified; Y92.89 Other specified places as the place of occurrence of the external cause; Y99.8 Other external cause status
CPT/HCPCS: 72127; 72131; Q9967